=== PATIENT | female | born 1955 | race Caucasian/White ===

== ENCOUNTER 2022-05-30 15:00 | Outpatient (RCR) | payer MEDICARE, OTHER, SELFPAY | END 2022-07-09 13:45 | disposition home or self-care (01) | LOC: HO.PT 15:00 | PROVIDERS: PCP Internal Medicine; Visit Provider Urology | DX: R39.15 Urgency of urination (principal) | CPT/HCPCS: 97110; 97112; 97140; 97161 ==

== ENCOUNTER 2023-12-07 14:03 | Emergency (ER) | payer OTHER, MEDICARE, SELFPAY ==
--- NOTE | ~2023-12-07 | XR_ITS ---
EXAMINATION: XR LUMBOSACRAL SPINE CLINICAL INFORMATION: Injury. Pain. COMPARISON: None available. TECHNIQUE: Three views of the lumbosacral spine. FINDINGS: The osseous structures appear demineralized. Spinal alignment is anatomic in the sagittal projection. There is compression deformity of the superior endplate of the L4 vertebral body. The degree of compression is approximately 40%. This is age indeterminant, however, appears chronic in nature. Remaining lumbar vertebral bodies demonstrate preserved stature. Intervertebral disc spaces are fairly well preserved. There is facet arthropathy at L5-S1. The sacroiliac joints are maintained. There is abundant stool throughout the colon. XR/XR lumbar spine 2-3V IMPRESSION: Age indeterminant L4 superior endplate compression deformity. Osteopenia.
[2023-12-07 14:10] VITALS: BP 96/58; PULSE 62; O2SAT 98
[2023-12-07 14:33] VITALS: BP 102/63; PULSE 63; RESP 18; TEMP 36.3; O2SAT 97; BMI 22.6
--- NOTE | 2023-12-07 14:37 | ED.GENADULT ---
HPI - General Adult General Chief complaint: Back Pain/Injury Stated complaint: back pain injury at work lifting heavy object Time Seen by Provider: 12/07/23 18:01 Source: patient Mode of arrival: ambulatory Limitations: no limitations History of Present Illness ED Provider: Dr. Ruiz HPI narrative: 68-year-old female past medical history who presents emergency department complaining of back pain. She states she was doing a 2 person transfer at work and she felt a pop in her back and intense pain incident happened and approximately 7 hours prior to my evaluation she has not take any pain medications she denies any falls or injuries she denies any numbness tingling loss of bowel or bladder function Related Data Previous Rx's ?Medication ?Instructions ?Recorded acetaminophen 325 mg tablet 325 mg PO QID PRN pain #90 tabs 12/07/23 (Tylenol) cyclobenzaprine 5 mg tablet 5 mg PO BEDTIME PRN muscle spasm 12/07/23 #20 tabs prednisone 20 mg tablet 60 mg (3 x 20 mg) PO DAILY Asthma 12/07/23 5 days #15 tabs Allergies Allergy/AdvReac Type Severity Reaction Status Date / Time valacyclovir [From Valtrex] Allergy Hives Verified 12/07/23 14:37 Review of Systems Review of Systems: Review of systems: General: Patient denies any fever chills recent illness or falls Musculoskeletal: Back pain denies any or body aches or other injuries HEENT: denies headache, runny nose, ear pain Respiratory: denies shortness of breath, cough Cardiovascular: no chest pain or palpitations : denies dysuria, frequency Abdomen: no nausea vomiting denies abdominal pain Extremities: no swelling, no pain Skin: no diaphoresis Yes all other systems are reviewed and are negative PMFSH Social History Social History Do you have a plan to hurt others: No Plan Physical Exam ED Vital Signs: Vital Signs - 24 hr 12/07/23 14:33 Temperature 97.4 F Pulse Rate 63 Respiratory Rate 18 Blood Pressure 102/63 Pulse Oximetry 97 Oxygen Delivery Method Room Air BMI result Body Mass Index 22.6 General: Well-appearing well-nourished in no signs of distress HEENT: Normocephalic atraumatic Neck: No signs of JVD, no masses no tenderness or lymphadenopathy Cardiovascular: Regular rate and rhythm Respiratory: Clear to auscultation bilaterally Abdomen: Soft nontender no masses Extremities: Normal pedal pulses no signs of edema Skin: Dry warm no rashes Back: No tenderness full ROM negative straight leg test Course Course Course Narrative: RME performed by Aisha Choi PA-C. Patient is a 68 year old assigned female at presenting to the emergency department with low back pain. Patient states she was lifting a patient when she strained her low back. Detailed physical exam and review of systems are deferred to the small business banking officer. Imaging ordered. Patient placed back in the waiting room pending room availability and results. Medications Administered Discontinued Medications Generic Name Dose Route Start Last Admin Trade Name Freq PRN Reason Stop Dose Admin Acetaminophen 975 mg 12/07/23 17:35 12/07/23 18:10 Acetaminophen 325 Mg Tablet PO 12/07/23 17:36 975 mg ONCE ONE Administration Ibuprofen 400 mg 12/07/23 17:35 12/07/23 18:10 Ibuprofen 400 Mg Tablet PO 12/07/23 17:36 400 mg ONCE ONE Administration Prednisone 60 mg 12/07/23 18:04 12/07/23 18:10 Prednisone 20 Mg Tablet PO 12/07/23 18:05 60 mg ONCE ONE Administration Medical Decision Making Medical Decision Making [facility] Narrative: I will treat the patient Tylenol ibuprofen prednisone and a muscle relaxant do think the patient safe to go home Differential Diagnosis Differential Diagnoses: The differential diagnosis associated with the presentation includes Back strain old back fracture weakness lumbar radiculopathy Independent Interpretation I performed an independent interpretation of an: Plain X-Ray Radiology Impression Discussion of test interpretation with radiology: I have reviewed the radiologist's reading. External Record Review External record reviewed: Inpatient record and Office record Patient has never been her for list of previous records to review Discharge Plan Discharge Clinical Impression: Strain of lumbar region, Lumbar radiculopathy Patient Disposition: Home, Self-Care Instructions: Acute Low Back Pain (ED), Lumbar Radiculopathy (ED), Lower Back Exercises (ED) Additional Instructions: You were seen in the ER for back pain You were given prednisone and had a normal Xr. You can take prednisone and tylenol and flexeril. If you have any other concerns please return to the ER. Prescriptions: New acetaminophen [Tylenol] 325 mg tablet 325 mg PO QID PRN (Reason: pain) Qty: 90 0RF prednisone 20 mg tablet 60 mg PO DAILY 5 Days Qty: 15 0RF cyclobenzaprine 5 mg tablet 5 mg PO BEDTIME PRN (Reason: muscle spasm) Qty: 20 0RF Print Language: Khmer
[2023-12-07] MEDS: predniSONE 20 MG TABLET 60 MG PO (18:10)
[2023-12-07] MEDS: Ibuprofen 400 MG TABLET PO (18:10)
[2023-12-07] MEDS: Acetaminophen 325 MG TABLET 975 MG PO (18:10)
[2023-12-07 18:28] VITALS: BP 114/73; PULSE 66; RESP 18; TEMP 36.6; O2SAT 99
[2023-12-07 18:36] VITALS: BP 114/73; PULSE 66; RESP 18; TEMP 36.6; O2SAT 99
== END 2023-12-07 18:37 | disposition home or self-care (01) ==
PROVIDERS: Emergency Provider Student in an Organized Health Care Education/Training Program
DX: S39.012A Strain of muscle, fascia and tendon of lower back, initial encounter (principal); M54.16 Radiculopathy, lumbar region; X50.9XXA Other and unspecified overexertion or strenuous movements or postures, initial encounter; Y93.89 Activity, other specified; Y92.89 Other specified places as the place of occurrence of the external cause; Y99.0 Civilian activity done for income or pay
CPT/HCPCS: 72100; 99283